=== PATIENT | male | born 1950 | race African-American/Black ===

== ENCOUNTER 2017-03-26 12:06 | Emergency (ER) | payer MEDICARE, OTHER ==
[2017-03-26] MEDS ORDERED: KETOROLAC TROMETHAMINE 60 MG/2 ML SDV IM ONE (13:28)
--- NOTE | 2017-03-26 13:28 | ER Document Report ---
HPI - HPI Patient complains to provider of: right ankle pain Onset: Last week Onset/Duration: Sudden Quality of pain: Achy Severity: Mild Pain Level: 2 Context: Patient states he has a history of gout and his right ankle has been hurting him since last week. Now complains of pain to the joint of the left hand and left elbow. Associated Symptoms: None Exacerbated by: Walking Relieved by: Denies Similar symptoms previously: Yes Recently seen / treated by doctor: No - ROS ROS below otherwise negative: Yes Systems Reviewed and Negative: Yes All other systems reviewed and negative - CONSTITUTIONAL Constitutional: DENIES: Fever - EENT EENT: DENIES: Congestion - NEURO Neurology: DENIES: Headache - CARDIOVASCULAR Cardiovascular: DENIES: Chest pain - RESPIRATORY Respiratory: DENIES: Trouble Breathing - GASTROINTESTINAL Gastrointestinal: DENIES: Abdominal Pain - MUSCULOSKELETAL Musculoskeletal: REPORTS: Extremity pain - DERM Skin Color: Erythema - Right ankle, left thumb base Past Medical History - General Information source: Patient - Social History Smoking Status: Never Smoker Frequency of alcohol use: None Drug Abuse: None Lives with: Family Family History: Reviewed & Not Pertinent Musculoskeltal Medical History: Reports Hx Gout Past Surgical History: Reports: Hx Orthopedic Surgery Vertical Provider Document - CONSTITUTIONAL Agree With Documented VS: Yes Exam Limitations: No Limitations General Appearance: WD/WN, No Apparent Distress - INFECTION CONTROL TRAVEL OUTSIDE OF THE [place] IN LAST 30 DAYS: No - HEENT HEENT: Atraumatic, Normocephalic - RESPIRATORY Respiratory: Breath Sounds Normal, No Respiratory Distress O2 Sat by Pulse Oximetry: 99 - CARDIOVASCULAR Cardiovascular: Regular Rate, Regular Rhythm - MUSCULOSKELETAL/EXTREMETIES Musculoskeletal/Extremeties: Tender, Edema - Mild edema, warmth and erythema to right ankle. Slight amount of warmth noted to left elbow and base of left thumb. - NEURO Level of Consciousness: Awake, Alert, Appropriate - DERM Integumentary: Warm, Dry Course - Vital Signs Vital signs: Temp Pulse Resp BP Pulse Ox 98.4 F 69 16 125/76 99 03/26/17 12:12 03/26/17 12:12 03/26/17 12:12 03/26/17 12:12 03/26/17 12:12 Discharge - Discharge Clinical Impression: Gout Qualifiers: Gout site: multiple sites Gout etiology: unspecified cause Chronicity: acute Qualified Code(s): M10.9 - Gout, unspecified Condition: Good Disposition: HOME, SELF-CARE Additional Instructions: Take meds as prescribed Continue ibuprofen every 8 hrs as needed follow-up with your doctor next week for recheck Return as needed Prescriptions: Colchicine [Colcrys 0.6 mg Tablet] 0.6 mg PO PRN #3 tablet Methylprednisolone 4 mg PO ASDIR PRN #1 tab.ds.pk PRN Reason:
[2017-03-26 14:25] VITALS: BP 122/87
== END 2017-03-26 14:17 | disposition home or self-care (01) ==
LOC: ER 12:06
DX: M10.9 Gout, unspecified (principal); M25.571 Pain in right ankle and joints of right foot; M25.522 Pain in left elbow
CPT/HCPCS: 99283; 96372; J1885

== ENCOUNTER 2017-12-26 20:21 | Emergency (ER) | payer MEDICARE, OTHER ==
[2017-12-26 22:51] LABS: CHLAM PCR NOT DETECTED (NOT DETECT); GON PCR NOT DETECTED (NOT DETECT)
--- NOTE | 2017-12-26 23:30 | ER Document Report ---
ED General - General Mode of Arrival: Ambulatory Information source: Patient TRAVEL OUTSIDE OF THE [place] IN LAST 30 DAYS: No - General Chief Complaint: Testicular Pain Stated Complaint: TESTICULAR PAIN Time Seen by Provider: 12/26/17 23:00 Notes: Patient is a 67 year old male presenting to the emergency department complaining of left testicular pain onset 3-4 days ago and nausea onset 1 day ago. Patient states that he the pain started after he lifted some heavy items in [employer]. Patient states the pain is exacerbated when he is standing up. Patient expresses concern for epididymitis due to his past history as well as possible STIs, further stating he saw a female friend a few weeks ago. Patient denies any fevers, diaphoresis, discharges, dysuria or hematuria. Patient has a fever of 100.1 upon arrival to the emergency department. (LANDY LIM) - Related Data Allergies/Adverse Reactions: acetaminophen [From Tylenol] Allergy (Verified 12/26/17 20:54) Past Medical History - General Information source: Patient - Social History Smoking Status: Former Smoker Chew tobacco use (# tins/day): No Frequency of alcohol use: None Drug Abuse: None Family History: Reviewed & Not Pertinent Patient has suicidal ideation: No Patient has homicidal ideation: No Musculoskeltal Medical History: Reports Hx Gout Past Surgical History: Reports: Hx Orthopedic Surgery - Immunizations Hx Diphtheria, Pertussis, Tetanus Vaccination: Yes Review of Systems - Review of Systems Constitutional: No symptoms reported EENT: No symptoms reported Cardiovascular: No symptoms reported Respiratory: No symptoms reported Gastrointestinal: See HPI, Nausea Genitourinary: No symptoms reported Male Genitourinary: See HPI, Testicular pain - left Musculoskeletal: No symptoms reported Skin: No symptoms reported Hematologic/Lymphatic: No symptoms reported Neurological/Psychological: No symptoms reported -: Yes All other systems reviewed and negative Physical Exam - Vital signs Vitals: Temp Pulse Resp BP Pulse Ox 100.1 F 71 16 138/81 H 97 12/26/17 20:52 12/26/17 20:52 12/26/17 20:52 12/26/17 20:52 12/26/17 20:52 - Notes Notes: GENERAL: Alert, interacts well. No acute distress. HEAD: Normocephalic, atraumatic. EYES: Pupils equal, round, and reactive to light. Extraocular movements intact. ENT: Oral mucosa moist, tongue midline. NECK: Full range of motion. Supple. Trachea midline. LUNGS: Clear to auscultation bilaterally, no wheezes, rales, or rhonchi. No respiratory distress. HEART: Regular rate and rhythm. No murmurs, gallops, or rubs. ABDOMEN: Soft, non-tender. Non-distended. Bowel sounds present in all 4 quadrants. EXTREMITIES: Moves all 4 extremities spontaneously. NEUROLOGICAL: Alert and oriented x3. Normal speech. PSYCH: Normal affect, normal mood. SKIN: Warm, dry, and normal turgor. No rashes or lesions noted. : Circumcised. Testicle not tender to palpation bilaterally. Cremasteric reflexes intact. When standing, there is bulging and increased fullness of the left albina-scrotum consistent with an inguinal hernia. (LANDY LIM) Course - Re-evaluation Re-evalutation: 12/27/17 01:18 Urinalysis unremarkable, no blood, no signs of infection, gonorrhea and Chlamydia tests are negative, scrotal ultrasound shows no evidence of epididymitis although he does have bilateral hydroceles and multiple epididymal cysts. There is bilateral blood flow to the testes. No evidence of torsion. Physical examination consistent with left-sided inguinal hernia which is easily reducible, no evidence of incarceration or strangulation. Patient is advised to wear supportive underwear, consider wearing a jock strap, following up with surgery as an outpatient and avoiding heavy lifting at this time. Patient is agreeable to this plan. (KAILA VILLANUEVA) - Vital Signs Vital signs: Temp Pulse Resp BP Pulse Ox 97.6 F 63 18 128/93 H 99 12/27/17 02:18 12/27/17 02:18 12/27/17 02:18 12/27/17 02:18 12/27/17 02:18 Discharge - Discharge Clinical Impression: Left inguinal hernia, Cyst of epididymis determined by ultrasound Condition: Stable Disposition: HOME, SELF-CARE Additional Instructions: Today there is no sign of sexually transmitted disease, no sign of blood or infection in your urine, ultrasound did not show any signs of infection of your testicles. You do have small cysts on your bilateral epididymi. Your physical examination shows a small left inguinal hernia. There is no evidence that is incarcerated (stuck). If at any point this becomes larger, hard and very tender to palpation and urine unable to get it to go back in on its own he should return to the emergency department immediately. Otherwise you should wear supportive underwear, consider wearing a jock strap and follow-up with a surgeon as an outpatient to discuss possibly having this fixed surgically. I do not know what is causing your low-grade fever today. We did not find any source of an infection today. Please return for any new or concerning symptoms. Hernia You have a hernia. A hernia forms at a weak spot in the abdominal wall. Bowel slips out of the abdominal cavity into the weak spot. Hernias tend to occur in the groin (especially in males), the fold of the thigh, the naval, or at a surgical scar. Surgical repair of the defect is usually necessary. The problem tends to get worse. It's important that you follow up as recommended. For now, you should avoid straining, heavy lifting, and vigorous exercise. Complications occur if the hernia becomes tightly stuck. You should come back immediately if the area becomes increasingly painful, swollen, or discolored, or if you develop abdominal pain and vomiting. Referrals: ANDREW CABRERA MD [ACTIVE STAFF] - Follow up in 1 week Scribe Attestation: 12/27/17 03:09 I personally performed the services described in the documentation, reviewed and edited the documentation which was dictated to the scribe in my presence, and it accurately records my words and actions. (KAILA VILLANUEVA) Scribe Documentation - Scribe Written by Jax:: Jax Lares, 12/26/2017 23:33 acting as scribe for :: Beryl
[2017-12-27 00:22] LABS: APPEARANCE,URINE CLEAR; BILIRUBIN,URINE NEGATIVE (NEGATIVE); COLOR,URINE YELLOW; GLUCOSE, URINE NEGATIVE (NEGATIVE); KETONES,URINE NEGATIVE (NEGATIVE); LEUKOCYTE ESTERASE,URINE NEGATIVE (NEGATIVE); NITRITE,URINE NEGATIVE (NEGATIVE); PROTEIN,URINE NEGATIVE (NEGATIVE); URINE SPECIFIC GRAVITY 1.023; UROBILINOGEN,URINE NEGATIVE mg/dL (<2.0)
--- NOTE | 2017-12-27 00:55 | RADIOLOGY REPORT (SQ) ---
EXAM DESCRIPTION: Complete testicular ultrasound. CLINICAL HISTORY: 67 years Male, r/o torsion COMPARISON: None. TECHNIQUE: Real-time sonographic images of the scrotal contents obtained using a linear multi hertz transducer. Color and spectral Doppler imaging was also obtained. FINDINGS: Testicles: The right testicle measures 3.8 x 2.5 x 3.6 cm. The left testicle measures 4.0 x 2.3 x 3 point cm. No solid intratesticular mass identified. Homogenous echogenicity of the testicles. Epididymis: There is small right epididymal cysts, the largest measuring 6 mm. Multiple left epididymal cysts, the largest measuring 1.0 cm. Hydrocele: Small bilateral hydroceles. Blood flow:Normal arterial and venous blood flow identified bilaterally. Other:No additional findings. IMPRESSION: 1. Small bilateral hydroceles. 2. Blood flow is identified in the testicles bilaterally.
[2017-12-27 02:19] VITALS: BP 128/93
== END 2017-12-27 02:19 | disposition home or self-care (01) ==
LOC: ER 20:21
DX: K40.90 Unilateral inguinal hernia, without obstruction or gangrene, not specified as recurrent (principal); N50.3 Cyst of epididymis; N50.812 Left testicular pain; Z87.891 Personal history of nicotine dependence
CPT/HCPCS: 76870; 81001; 87491; 87591; 93976; 99284